=== PATIENT | female | born 2000 | race Caucasian/White ===

== ENCOUNTER 2024-01-30 15:32 | Emergency (ER) | payer SELFPAY ==
[2024-01-30 15:33] VITALS: BP 134/67; PULSE 79; RESP 20; TEMP 36.6; O2SAT 100
[2024-01-30 19:45] VITALS: BP 124/69; PULSE 84; RESP 18; TEMP 36.4; O2SAT 99
--- NOTE | 2024-01-31 00:09 | PC.NURSE ---
Pt called by registration and this RN x1 w no response.
== END 2024-01-31 00:30 | disposition left against medical advice (07) ==
LOC: ANHED 01-31 00:27
PROVIDERS: PCP Nurse Practitioner Family
DX: R50.9 Fever, unspecified (principal)
CPT/HCPCS: 99199

== ENCOUNTER 2024-02-27 10:12 | Emergency (ER) | payer OTHER, SELFPAY ==
[2024-02-27 10:26] VITALS: BP 124/74; PULSE 100; RESP 16; TEMP 36.8; O2SAT 99
--- NOTE | 2024-02-27 10:31 | ED.URI ---
HPI - URI/Sore Throat General Chief Complaint: Upper Respiratory Infection Stated Complaint: covid-19 test Time Seen by Provider: 02/27/24 10:31 Source: patient, RN notes reviewed and old records reviewed Mode of arrival: ambulatory Limitations: no limitations History of Present Illness HPI Narrative: 23 year old female presents to [facility] care with complaints of 3-4 day history of a cough, nasal congestion, headache and fatigue with known exposure to COVID. Patient works in the intermediate with known COVID positive patient. Patient has been taking Mucinex for her symptoms denies any fever. MD elicited complaint: cough, rhinorrhea, nasal congestion and other (Fatigue and headache) Onset (ago): day(s) (3-4 days) Treatments prior to arrival: other (mucinex) Related Data Home Medications Medication Instructions Recorded Confirmed albuterol sulfate 90 mcg/actuation inhalation 02/27/24 aerosol inhaler buspirone 5 mg tablet mg 02/27/24 ergocalciferol (vitamin D2) 1,250 02/27/24 mcg (50,000 unit) capsule fluticasone propionate 220 inhalation 02/27/24 mcg/actuation HFA aerosol inhaler metformin 02/27/24 Allergies Allergy/AdvReac Type Severity Reaction Status Date / Time No Known Allergies Allergy Verified 02/27/24 10:32 Review of Systems Review of Systems: CONSTITUTIONAL:Reports malaise,no chills, sweats, or fever.reports fatigue EYES: Denies visual changes, redness, or discharge. ENT: Reports rhinorrhea, congestion, sinus pain,no otalgia and no sore throat. CARDIOVASCULAR: Denies chest pain, palpitations, or edema. RESPIRATORY: Reports cough.? Denies dyspnea. GASTROINTESTINAL: Denies abdominal pain, nausea, vomiting, diarrhea SKIN: Denies rash or itching. MUSCULOSKELETAL: Denies myalgia. NEUROLOGIC: Reports headache. 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 There is no relevant family history pertinent to the presenting complaint Exam Narrative: GENERAL: Well-appearing, well-nourished, and in no acute distress. HEAD: Normocephalic EYES: PERRLA, conjunctivae clear ENT: Nares clear, turbinates edematous and erythematous, clear discharge. Mucous membranes moist. TM pearly dupont with dull light reflex bilaterally; no tragal tenderness. Oropharynx erythematous without lesions. Tonsils not enlarged and without exudate, no drooling, no hoarseness, no trismus, uvula midline.post nasal drainage NECK: Supple. No lymphadenopathy CHEST: Clear to auscultation, breath sounds equal. No wheezing, rhonchi, rales, or stridor. No respiratory distress, speaks in full sentences.productive cough, SAO2 99% on room air HEART: Regular rate and rhythm. No murmur heard. SKIN: Warm, dry, no rash. NEURO: Alert and oriented x3. PSYCH: Normal mood and affect Course Course Emergency Course: Patient is aware of diagnosis, understands and agrees to treatment plan.? Anticipatory guidance given.? Patient agrees to follow-up as directed and is aware of reasons to seek care at the emergency department. Portions of this record may have been created with voice recognition software Level of Care: Express Care Visit Vital Signs Vital signs: Vital Signs Temperature 36.8 C 02/27/24 10:26 Pulse Rate 100 02/27/24 10:26 Respiratory Ra
[2024-02-27 11:13] LABS: EDCOVIDSCREEN Positive (Negative)
== END 2024-02-27 11:05 | disposition home or self-care (01) ==
PROVIDERS: Emergency Provider Registered Nurse; PCP Nurse Practitioner Family
DX: U07.1 COVID-19 (principal); K20.0 Eosinophilic esophagitis; E28.2 Polycystic ovarian syndrome
CPT/HCPCS: 87635; 99212; G0463

== ENCOUNTER 2024-05-01 13:38 | Emergency (ER) | payer MEDICAID, SELFPAY ==
[2024-05-01 13:53] VITALS: BP 128/59; PULSE 90; RESP 16; TEMP 36.6; O2SAT 100
--- NOTE | 2024-05-01 14:03 | ED.GENADULT ---
HPI - General Adult General Chief complaint: Upper Respiratory Infection Stated complaint: Sore throat Time Seen by Provider: 05/01/24 14:07 Source: patient Mode of arrival: ambulatory Limitations: no limitations History of Present Illness HPI narrative: 23-year-old female patient presents to [facility] with complaints of some sore throat for the past 2-3 days. Patient was seen in the [facility] but couple weeks ago was diagnosed with strep was provided amoxicillin. Patient states she finished antibiotic and was feeling better however about 3 days ago her symptoms return. Denies fevers that she is aware of. Related Data Home Medications Medication Instructions Recorded Confirmed albuterol 90 mcg/actuation aerosol 90 mcg inhalation PRN PRN 05/01/24 05/01/24 inhaler Shortness Of Breath Or Wheezing ergocalciferol (vitamin D2) 1,250 1,250 mcg PO WEEKLY 05/01/24 05/01/24 mcg (50,000 unit) capsule fluticasone propionate 220 2 puff inhalation BID 05/01/24 05/01/24 mcg/actuation HFA aerosol inhaler metformin 500 mg tablet 500 mg PO BID 05/01/24 05/01/24 Allergies Allergy/AdvReac Type Severity Reaction Status Date / Time No Known Allergies Allergy Verified 05/01/24 13:48 Review of Systems Review of Systems: CONSTITUTIONAL: Denies fever, chills, or sweats. EYES: Denies visual changes, redness, or discharge. ENT: Denies rhinorrhea, congestion, positive sore throat, denies otalgia. CARDIOVASCULAR: Denies chest pain, palpitations, or edema. RESPIRATORY: Denies cough or dyspnea. GASTROINTESTINAL: Denies abdominal pain, nausea, vomiting, or diarrhea. GENITOURINARY: Denies dysuria or hematuria. SKIN: Denies rash or itching. MUSCULOSKELETAL: Denies back pain, joint pain, or myalgia. NEUROLOGIC: Denies headache, numbness, or weakness. PSYCHIATRIC: Denies anxiety or depression. [facility] Past Medical History Medical History Eosinophilic esophagitis PCOS (polycystic ovarian syndrome) Social History Social History Smoking status: Never smoker Alcohol intake: current Alcohol use details: rare social Substance use type: does not use Living arrangements: with family Additional occupation/education comments: works in alf Gender identity (if verbalized by the patient): Female Comments at the time of my signature I agree with nursing past medical history, surgical, social, and family history. There is no relevant family history pertinent to the presenting complaint. Exam Narrative: GENERAL: Well-appearing, well-nourished, and in no acute distress. HEAD: Normocephalic, atraumatic. EYES: PERRLA and EOMI. ENT: Nares clear, no rhinorrhea or epistaxis. Mucous membranes moist. posterior pharynx with bright red erythema and some white exudate noted. NECK: Supple. No lymphadenopathy CHEST: Clear to auscultation. No respiratory distress. HEART: Regular rate and rhythm. No murmur heard. Normal peripheral pulses. ABDOMEN: Soft, nontender, nondistended, normal active bowel sounds. EXTREMITIES: Normal range of motion. No edema. SKIN: Warm, dry, no rash. NEURO: No focal deficits. Alert and oriented x3. Course Course Level of Care: Express Care Visit Vital Signs Vital signs: Vital Signs Temperature 36.6 C 05/01/24 13:53 Pulse Rate 90 05/01/24 13:53 Respiratory Rate 16 05/01/24 13:53 Blood Pressure 128/59 L 05/01/24 13:53 Pulse Oximetry 100 05/01/24 13:53 Oxygen Delivery Room Air 05/01/24 13:53 Temperature 36.6 C 05/01/24 13:53 Pulse Rate 90 05/01/24 13:53 Respiratory Rate 16 05/01/24 13:53 Blood Pressure 128/59 L 05/01/24 13:53 Pulse Oximetry 100 05/01/24 13:53 Oxygen Delivery Room Air 05/01/24 13:53 Vital signs reviewed Medical Decision Making MDM Narrative Medical decision making narrative: Plan of care patient is discharged home with oral antibiotics since she did test positive today for strep. We will try different antibiotic this time since the amoxicillin did not seem to work for her. Also provide her steroids to help with pain. Patient is aware of plan of care denies any other questions or concerns at this time. Differential Diagnosis Differential Diagnosis: differential diagnosis: Viral pharyngitis, pharyngitis, group A strep, infectious mononucleosis, gonococcal pharyngitis, exudative pharyngitis, oral candidiasis. Chronic allergies, postnasal drip, GERD, abscess formation, but glottitis, retropharyngeal abscess formation, or airway obstruction. Vital Signs Vital Signs: Vital Signs Temperature 36.6 C 05/01/24 13:53 Pulse Rate 90 05/01/24 13:53 Respiratory Rate 16 05/01/24 13:53 Blood Pressure 128/59 L 05/01/24 13:53 Pulse Oximetry 100 05/01/24 13:53 Oxygen Delivery Room Air 05/01/24 13:53 Temperature 36.6 C 05/01/24 13:53 Pulse Rate 90 05/01/24 13:53 Respiratory Rate 16 05/01/24 13:53 Blood Pressure 128/59 L 05/01/24 13:53 Pulse Oximetry 100 05/01/24 13:53 Oxygen Delivery Room Air 05/01/24 13:53 Discharge Plan Discharge Clinical Impression: Acute streptococcal pharyngitis Patient Disposition: Home, Self-Care Condition: Stable Instructions: Antibiotic Form, Strep Throat (ED) Additional Instructions: -Take the medication as prescribed. Throw away the toothbrush after 24hours of antibiotic. -Eat things that are easy to swallow, like tea or soup, or popsicles to suck on. You might not feel like eating or drinking, but it's important that you get enough liquids. -Oral rinses such as: Salt water gargles and/or may use topical anesthetic (eg. Chloraseptic spray) or lozenges to relieve dryness or throat pain). -Take Tylenol and ibuprofen as needed for pain and fever as directed. -Frequent hand washing or hand art framing manager is one of the best ways to prevent spread of infection. -Follow up with primary care provider in 2-3 days if condition is not improving or seek ER visit if you start breathing fast/has trouble breathing, is not drinking enough fluids, muffle voice, difficulty opening the mouth. Prescriptions: New clindamycin HCl 300 mg capsule 300 mg PO TID 10 Days Qty: 30 0RF prednisone 20 mg tablet 40 mg PO DAILY 3 Days Qty: 6 0RF No Action fluticasone propionate 220 mcg/actuation HFA aerosol inhaler 2 puff INHALATION BID ergocalciferol (vitamin D2) 1,250 mcg (50,000 unit) capsule 1,250 mcg PO WEEKLY albuterol 90 mcg/actuation Aerosol 90 mcg INHALATION PRN PRN (Reason: Shortness Of Breath Or Wheezing) metformin 500 mg Tablet 500 mg PO BID Follow-up/Referrals: Mounika Hare NP [Primary Care Provider] - Time of Disposition: 14:11
[2024-05-03 10:04] LABS: EDSTREPNEGPOS1 Positive (Negative)
== END 2024-05-01 14:12 | disposition home or self-care (01) ==
PROVIDERS: Emergency Provider Nurse Practitioner Family; PCP Nurse Practitioner Family
DX: J02.0 Streptococcal pharyngitis (principal); K20.0 Eosinophilic esophagitis; E28.2 Polycystic ovarian syndrome
CPT/HCPCS: 87880; 99213; G0463